=== PATIENT | female | born 1995 | race African-American/Black ===

== ENCOUNTER 2024-09-14 09:15 | Emergency (ER) | payer OTHER ==
--- NOTE | 2024-09-14 09:27 | ED ---
URI HPI - General Chief Complaint: Upper Respiratory Infection Stated Complaint: cough, stuffy and running nose, headache Time Seen by Provider: 09/14/24 09:26 Source: patient, RN notes reviewed, old records reviewed Mode of arrival: ambulatory Limitations: no limitations - History of Present Illness Initial Comments: This is a 29-year-old female to the ER for evaluation today. Patient coming in for multiple complaints cough runny nose nasal congestion and headache. No medical history takes no medications denies fever MD Complaint: cough, rhinorrhea, nasal congestion, sinus pain -: days(s) Severity: mild Severity scale (1-10): 3 Consistency: constant Improves With: nothing Worsens With: nothing Context: sick contacts Associated Symptoms: myalgias, nasal congestion, cough Treatments Prior to Arrival: none - Related Data Allergies Allergy/AdvReac Type Severity Reaction Status Date / Time No Known Allergies Allergy Verified 09/14/24 09:25 Review of Systems ROS Statement: Those systems with pertinent positive or pertinent negative responses have been documented in the HPI. ROS Other: All systems not noted in ROS Statement are negative. Past Medical History History of Any Multi-Drug Resistant Organisms: None Reported Past Psychological History: No Psychological Hx Reported Smoking Status: Never smoker Past Alcohol Use History: None Reported Past Drug Use History: Marijuana General Exam Limitations: no limitations General appearance: alert, in no apparent distress Head exam: Present: atraumatic, normocephalic, normal inspection Eye exam: Present: normal appearance, PERRL, EOMI. Absent: scleral icterus, conjunctival injection, periorbital swelling ENT exam: Present: normal exam, mucous membranes moist Neck exam: Present: normal inspection. Absent: tenderness, meningismus, lymphadenopathy Respiratory exam: Present: normal lung sounds bilaterally. Absent: respiratory distress, wheezes, rales, rhonchi, stridor Cardiovascular Exam: Present: regular rate, normal rhythm, normal heart sounds. Absent: systolic murmur, diastolic murmur, rubs, gallop, clicks GI/Abdominal exam: Present: soft, normal bowel sounds. Absent: distended, tenderness, guarding, rebound, rigid Extremities exam: Present: normal inspection, full ROM, normal capillary refill. Absent: tenderness, pedal edema, joint swelling, calf tenderness Back exam: Present: normal inspection Neurological exam: Present: alert, oriented X3, CN II-XII intact Psychiatric exam: Present: normal affect, normal mood Skin exam: Present: warm, dry, intact, normal color. Absent: rash Course Vital Signs 09/14/24 09/14/24 09:19 09:58 Temperature 98.0 F Pulse Rate 67 Respiratory 20 18 Rate Blood Pressure 122/88 O2 Sat by Pulse 100 Oximetry - Reevaluation(s) Reevaluation #1: 09/14/24 09:27 Medical records reviewed Reevaluation #2: 09/14/24 10:16 Patient symptoms improved here in the ER Reevaluation #3: 09/14/24 10:16 Patient for results questions answered Reevaluation #4: Was pt. sent in by a medical professional or institution (, [facility], [facility], urgent care, hospital, or correction...) When possible be specific @ -no Did you speak to anyone other than the patient for history (EMS, parent, family, police, friend...)? What history was obtained from this source @ -no Did you review nursing and triage notes (agree or disagree)? Why? @ -agree Are old charts reviewed (outside hosp., previous admission, EMS record, old EKG, old radiological studies, urgent care reports/EKG's, correction records)? Report findings @ -yes Differential Diagnosis (chest pain, altered mental status, abdominal pain women, abdominal pain men, vaginal bleeding, weakness, fever, dyspnea, syncope, headache, dizziness, GI bleed, back pain, seizure, CVA, palpatations, mental health, musculoskeletal)? @ -prior EKG interpreted by me (3pts min.). @ -yes X-rays interpreted by me (1pt min.). @ -yes negative for acute disease CT interpreted by me (1pt min.). @ -no U/S interpreted by me (1pt. min.). @ -no What testing was considered but not performed or refused? (CT, X-rays, U/S, labs)? Why? @ -none What meds were considered but not given or refused? Why? @ -none Did you discuss the management of the patient with other professionals (professionals i.e. [facility], [facility], lab, RT, psych nurse, social service assistant, paint tinter, teacher, global chief creative officer, nurse case management)? Give summary @ -no Was smoking cessation discussed for >3mins.? @ -no Was critical care preformed (if so, how long)? @ -no Were there social determinants of health that impacted care today? How? (Homelessness, low income, unemployed, alcoholism, drug addiction, transportation, low edu. Level, literacy, decrease access to med. care, correction, rehab)? @ -none Was there de-escalation of care discussed even if they declined (Discuss DNR or withdrawal of care, Hospice)? DNR status @ -no What co-morbidities impacted this encounter? (DM, HTN, Smoking, COPD, CAD, Cancer, CVA, ARF, Chemo, Hep., AIDS, mental health diagnosis, sleep apnea, morbid obesity)? @ -none Was patient admitted / discharged? Hospital course, mention meds given and route, prescriptions, significant lab abnormalities, going to OR and other pertinent info. @ - Undiagnosed new problem with uncertain prognosis? @ -no Drug Therapy requiring intensive monitoring for toxicity (Heparin, Nitro, Insulin, Cardizem)? @ -no Were any procedures done? @ -no Diagnosis/symptom? @ - Acute, or Chronic, or Acute on Chronic? @ -Acute Uncomplicated (without systemic symptoms) or Complicated (systemic symptoms)? @ -Complicated Side effects of treatment? @ -no Exacerbation, Progression, or Severe Exacerbation? @ -exacerbation Poses a threat to life or bodily function? How? (Chest pain, [place], [place], pneumonia, PE, COPD, DKA, ARF, appy, cholecystitis, CVA, Diverticulitis, Homicidal, Suicidal, threat to staff... and all critical care pts) @ -yes Medical Decision Making - Medical Decision Making 29 female with upper respiratory infection symptoms running nose cough congestion, chest x-ray is negative patient did not have a sore throat, viral testing is negative patient can be discharged home - Lab Data Lab Results 09/14/24 Range/Units 09:21 Influenza Type A (PCR) Not Detected (Not Detectd) Influenza Type B (PCR) Not Detected (Not Detectd) RSV (PCR) Not Detected (Not Detectd) SARS-CoV-2 (PCR) Not Detected (Not Detectd) - Radiology Data Radiology results: report reviewed (Chest x-ray is negative for acute disease), image reviewed Disposition Clinical Impression: Upper respiratory tract infection, Viral infection Disposition: HOME SELF-CARE Condition: Good Instructions (If sedation given, give patient instructions): Upper Respiratory Infection (ED) Is patient prescribed a controlled substance at d/c from ED?: No Referrals: Jeni Funes MD [Primary Care Provider] - 1-2 days Time of Disposition: 10:30
[2024-09-14 10:01] VITALS: RESP 18
[2024-09-14 10:07] LABS: Influenza A Not Detected (Not Detectd); Influenza B Not Detected (Not Detectd); RSV Not Detected (Not Detectd)
[2024-09-14] MEDS: ACETAMINOPHEN TAB 500 MG TAB PO STA (10:14)
[2024-09-14] MEDS: IBUPROFEN 800 MG TAB PO STA (10:14)
--- NOTE | 2024-09-14 10:38 | XR ---
EXAMINATION TYPE: XR chest 1V portable DATE OF EXAM: 09/14/2024 COMPARISON: NONE CLINICAL INDICATION: Female, 29 years old with history of cough; TECHNIQUE: Single frontal view of the chest is obtained. FINDINGS: Somewhat low lung volumes. There is no focal air space opacity, pleural effusion, or pneum othorax seen. The cardiac silhouette size is upper limits of normal. The osseous structures are in tact. Slight left-sided tracheal deviation with thickening of the right paratracheal stripe IMPRESSION: No definitive acute pulmonary infiltrate. Cannot exclude right paratracheal mediastinal mass or adenopathy. Consider CT evaluation. [facility], , 09/14/2024 10:35 AM
[2024-09-14 11:10] VITALS: BP 120/86; PULSE 64; TEMP 98
== END 2024-09-14 11:10 | disposition home or self-care (01) ==
LOC: EC 09:15
DX: J06.9 Acute upper respiratory infection, unspecified (principal)
CPT/HCPCS: 71045; 87636; 99284